=== PATIENT | male | born 1990 | race Caucasian/White ===

== ENCOUNTER 2017-08-20 14:42 | Emergency (ER) | payer OTHER ==
[~2017-08-20] VITALS: Ht 182.9 cm; Wt 115.7 kg
[~2017-08-20 14:42] MED LIST: ACETAMINOPHEN-1 EAC1 PO; ACYCLOVIR 400400 M1 PO; ALBUTEROL INHAL17 GM INH; AMOXICILLIN 50500 MG PO; AUGMENTIN 875875 MG PO; AZITHROMYCIN 2250 MG PO; BACTRIM DS TAB1 EACH PO; DOXYCYCLINE 10100 M1 PO; GLUCOPHAGE500 MG PO; GLYBURIDE 2.52.5 M1 PO; HYDROCODON-ACE1 EAC7 PO; IBUPROFEN 800800 MG PO; MEDROLDOSEPACK PO; METFORMIN HCL500 MG PO; NORCO 5-325 TA1 EACH PO; PAXIL10 MG; PENICILLIN VK250 MG PO; PREDNISONE 20 M20 M1 PO; PREDNISONE 20 M20 MG PO; PROAIR HFA8.5 GM IH; VENTOLIN HFA 1818 GM INH; VENTOLIN HFA INH8 GM IH; VERAPAMIL ER120 M1; VERAPAMIL ER180 M1; ZPAK PO
[2017-08-20 15:27] LABS: INFLUENZA A ANTIGEN None Detected (None Detect); INFLUENZA B ANTIGEN None Detected (None Detect)
[2017-08-20] MEDS ORDERED: AMOXICILLIN 50500 MG PO (15:27)
[2017-08-20 15:37] VITALS: BP 141/87
== END 2017-08-20 15:37 | disposition home or self-care (01) ==
LOC: M.ERS 14:42
PROVIDERS: Nurse Practitioner Family
DX: J01.90 Acute sinusitis, unspecified (principal); E11.9 Type 2 diabetes mellitus without complications; F17.210 Nicotine dependence, cigarettes, uncomplicated

== ENCOUNTER 2019-07-21 15:37 | Emergency (ER) | payer OTHER ==
[~2019-07-21] VITALS: Ht 180.3 cm; Wt 111.1 kg
[2019-07-21 15:53] VITALS: BP 143/86
[2019-07-21 16:21] LABS: INFLUENZA A ANTIGEN Negative (Negative); INFLUENZA B ANTIGEN Negative (Negative)
[2019-07-21] MEDS ORDERED: AFRIN15 ML NS (16:39)
[2019-07-21] MEDS ORDERED: MEDROLDOSEPACK PO (16:39)
[2019-07-21] MEDS ORDERED: AUGMENTIN 500-1 EACH PO (16:39)
== END 2019-07-21 16:56 | disposition home or self-care (01) ==
LOC: M.ERS 15:37
PROVIDERS: Family Medicine
DX: J01.90 Acute sinusitis, unspecified (principal); E11.9 Type 2 diabetes mellitus without complications; F17.210 Nicotine dependence, cigarettes, uncomplicated